=== PATIENT | female | born 1970 | race Caucasian/White ===

== ENCOUNTER 2016-07-26 03:01 | Emergency (ER) | payer SELFPAY ==
[~2016-07-26] VITALS: Ht 160 cm; Wt 79.5 kg
[2016-07-26 03:16] VITALS: Ht 160 cm; Wt 79.5 kg
== END 2016-07-26 04:04 | disposition left against medical advice (07) ==
LOC: FTE 03:01
DX: Z53.21 Procedure and treatment not carried out due to patient leaving prior to being seen by health care provider (principal)